=== PATIENT | male | born 2000 | race Caucasian/White ===

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

== ENCOUNTER 2022-04-15 15:00 | Emergency (ER) | payer OTHER, SELFPAY ==
--- NOTE | ~2022-04-15 | CT_ITS ---
EXAMINATION: CT brain wo con DATE: 04/15/2022 18:20 INDICATION: head injury s/p seizure . TECHNIQUE: Computed tomography (CT) of the head was performed without intravenous contrast. The mA wa s adjusted according to patient size. Iterative reconstruction technique was employed. The dose-lengt h product was 605.33 mGy-cm. COMPARISON: None FINDINGS: No acute intracranial hemorrhage or extra-axial fluid collection. No hydrocephalus, mass, or herniation. No acute ischemic infarct. Unremarkable dural venous sinus attenuation. No acute osseous abnormality. Right frontal retention cyst or polyp, otherwise the aerated spaces are clear. Sagittal reformats were not originally provided, low resolution sagittal reformats were created after the fact. IMPRESSION: No acute intracranial process. Reviewed, dictated and finalized at location K.
--- NOTE | ~2022-04-15 | CT_ITS ---
EXAMINATION: CT brain wo con DATE: 04/15/2022 16:04 INDICATION: Seizure TECHNIQUE: Computed tomography (CT) of the head was performed without intravenous contrast. Sagittal and coronal reconstructions were performed. The mA was adjusted according to patient size. Iterative reconstruction technique was employed. The dose-length product was 605.33 mGy-cm. COMPARISON: head CT dated 12/09/21 FINDINGS: No acute intracranial hemorrhage, acute infarction or abnormal extra axial fluid collection. Ventricl es are normal and symmetric. No mass/mass effect. Unchanged likely mucous retention cyst at the right frontoethmoidal recess. The orbits, paranasal sinuses and mastoid air cells are normal. IMPRESSION: 1. Normal brain. Reviewed, dictated and finalized at location A. IMPRESSION: 1. Normal brain.
[2022-04-15 15:03] VITALS: BP 127/96; PULSE 64; RESP 14; TEMP 36.7; O2SAT 100
--- NOTE | 2022-04-15 15:42 | ECG_ITS ---
Measurements Intervals [place] Rate: 59 P: 30 [place]: 127 QRS: 76 QRSD: 91 T: 57 QT: 391 QTc: 387 Interpretive Statements SINUS BRADYCARDIA WITH SINUS ARRHYTHMIA BORDERLINE ECG COMPARED TO ECG 12/09/2021 19:13:56 HEART RATE HAS DECREASED Electronically Signed On 04-16-2022 15:03:52 CDT by Catarino Le M.D.
--- NOTE | 2022-04-15 16:08 | ED.SEIZURE ---
HPI - Seizure General Chief Complaint: Seizure Stated Complaint: requesting CT due to possible SZ Time Seen by Provider: 04/15/22 15:23 History of Present Illness HPI Narrative: 21-year-old male who was admitted history of polysubstance abuse presents to the emergency room for possible seizure. Patient states last night he was told by a friend that he was having a seizure while asleep. Admits to a history of seizures over 1 year ago. Patient states that he believes he was having seizures due to his heavy fentanyl and cocaine years. States has been clean from drug use until just recently where he was doing cocaine. No associated injuries with his seizure. Denies fevers. Denies head injury or trauma. Seizure History: Yes Related Data Home Medications Medication Instructions Recorded Confirmed No Home Medications 12/09/21 12/09/21 Allergies Allergy/AdvReac Type Severity Reaction Status Date / Time bath & body soaps Allergy Severe Other Uncoded 02/08/21 17:23 steroids AdvReac Intermediate Other Uncoded 02/08/21 17:23 Review of Systems Review of Systems: CONSTITUTIONAL: Denies fever, chills, or sweats. EYES: Denies visual changes, redness, or discharge. ENT: Denies rhinorrhea, congestion, sore throat, or otalgia. CARDIOVASCULAR: Denies chest pain, palpitations, or edema. RESPIRATORY: Denies cough or dyspnea. GASTROINTESTINAL: Denies abdominal pain, nausea, vomiting, or diarrhea. GENITOURINARY: Denies dysuria or hematuria. SKIN: Denies rash or itching. MUSCULOSKELETAL: Denies back pain, joint pain, or myalgia. NEUROLOGIC: Denies headache, numbness, dizziness, or weakness. PSYCHIATRIC: Denies anxiety or depression. 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 The patient smokes marijuana. He denies any other illicit drugs. He is a full code. His adoptive parents are the durable power compliance attorney for healthcare. Smoking status: Current every day smoker Tobacco type: cigarettes Alcohol intake: current Drinks per week: 3 Substance use: current Substance use type: marijuana Other substance usage details: daily Gender identity (if verbalized by the patient): Male Sexual Orientation (if Verbalized by the Patient): Straight or Heterosexual Spiritual care concerns: No Exam Narrative: GENERAL: Well-appearing, well-nourished, no physical limitations, and in no acute distress. HEAD: Normocephalic, atraumatic. EYES: Conjunctivae normal, PERRLA and EOMI. ENT: External nose normal, Nares clear, no rhinorrhea or epistaxis. Mucous membranes moist. Oropharynx without tonsillar hypertrophy exudate or other lesions. External ears normal, bilateral TMs normal bilaterally NECK: Supple. No meningeal signs. No adenopathy or masses. No carotid bruits or JVD CHEST: Clear to auscultation. No respiratory distress. No wheezes rales or rhonchi. No tenderness. HEART: Regular rate and rhythm. No murmur heard. Normal peripheral pulses. EXTREMITIES: Normal range of motion. No edema. No clubbing or cyanosis SKIN: Warm, dry, no rash. No noted wounds NEURO: No focal deficits. Alert and oriented x3. MAEW. CN's II-XI intact bilaterally, normal gait PSYCH: Cooperative. Normal mood and affect. Course Vital Signs Vital signs:
[2022-04-15 16:49] LABS: Basophils Absolute Auto 0.1 K/mm3 (0.0-0.1); Basophils Percent Auto 0.6 % (0.2-1.2); Eosinophils Absolute Auto 0.1 K/mm3 (0-0.3); Eosinophils Percent Auto 0.5 % (0-4.4); Hematocrit 45.9 % (42.0-52.0); Hemoglobin 15.6 g/dL (14.0-18.0); Immature Granulocyte Absolute 0.04 K/mm3 (0.00-0.031); Immature Granulocyte Percent A 0.4 % (0-0.5); Lymphocytes Absolute Auto 1.44 K/mm3 (0.9-3.2); Lymphocytes Percent Auto 12.8 % (18.3-44.2); Mean Corpuscular Hemoglobin 30.3 pg (26-34); Mean Corpuscular Volume 89.1 fl (80-100); Mean Platelet Volume 10.3 fl (7.4-10.4); Monocytes Absolute Auto 0.8 K/mm3 (0.1-0.6); Neutrophils Absolute Auto 8.8 K/mm3 (1.3-6.7); Neutrophils Percent Auto 78.7 % (45.5-73.1); Platelet Count Result 250 k/mm3 (150-375); Red Blood Count 5.15 M/mm3 (4.6-6.20); Red Cell Distribution Width 13.4 % (11.5-14.5); White Blood Count 11.2 K/mm3 (4.5-10.0)
[2022-04-15 16:59] LABS: Alanine Aminotransferase 40 U/L (6-50); Alkaline Phosphatase 129 U/L (58-237); Anion Gap 12 mmol/L (8-16); Aspartate Amino Transferase 44 U/L (17-59); Bilirubin,Total 0.4 mg/dL (0.2-1.3); Blood Urea Nitrogen 11 mg/dL (8-21); Calcium 9.4 mg/dL (8.9-10.7); Carbon Dioxide 23 mmol/L (22-30); Chloride 100 mmol/L (98-107); Estimated Glomerular Filt Rate > 60; Glucose 99 mg/dL (65-110); Sodium 135 mmol/L (134-143)
[2022-04-15 17:03] LABS: Appearance Urine Clear (Clear); Bilirubin Urine Negative (Negative); Blood Urine Negative (Negative); Color Urine Yellow (Yellow); Glucose Urine UA Negative (Negative); Ketones Urine Negative (Negative); Leukocyte Esterase Ur Negative LEU/UL (Negative); Nitrate Urine Negative (Negative); Protein Urine Negative (Negative); Specific Grav Ur 1.025 (1.001-1.035); Urobilinogen Urine 0.2 mg/dL (<2.0)
[2022-04-15 17:06] LABS: Mucus Urine Rare /lpf; RBC Urine 0-2 /hpf (0-2); Squamous Epithelial Cell Urine Rare /hpf (Few); WBC Urine 0-3 /hpf
[2022-04-15 17:07] LABS: Add Urine Microscopic? NO
[2022-04-15 17:10] LABS: Troponin I < 0.012 ng/mL (0.000-0.034)
[2022-04-15 17:26] LABS: Amphetamine Screen Urine Negative (Negative); Barbiturate Screen Urine Negative (Negative); Benzodiazepines Screen Urine Negative (Negative); Cannabinoid Screen Urine Positive (Negative); Cocaine Screen Urine Positive (Negative); Methadone Screen Urine Negative (Negative); Opiate Screen Urine Negative (Negative); Phencyclidine Screen Urine Negative (Negative)
--- NOTE | 2022-04-15 18:02 | PC.NURSE ---
This RN went in to the room to get a last set of discharge vitals when I found the pt on the floor. Pt appears to be post ictal. projection engineer and ALL AROUND GEAR MACHINE OPERATOR made aware.
[2022-04-15] MEDS: LORazepam INJ (*CRX) 2 MG/ML VIAL 0.5 MG IV PUSH (18:21)
[2022-04-15] MEDS: levETIRAcetam 1000MG/NACL100ML 1,000 MG/100 ML BAG 400 MG IVPB (18:21)
--- NOTE | 2022-04-15 19:24 | PC.NURSE ---
pt requesting to leave AMA. pt states I'm not fucking staying here, I want to go home EDP Fabrice Tamayo made aware. pt educated on the importance of staying in the hospital and risks of leaving. Pt still wanting to leave AMA. pt alert and oriented x4.
== END 2022-04-15 19:24 | disposition left against medical advice (07) ==
PROVIDERS: Emergency Provider Nurse Practitioner Family
DX: R56.9 Unspecified convulsions (principal); F19.10 Other psychoactive substance abuse, uncomplicated; S00.93XA Contusion of unspecified part of head, initial encounter; R00.1 Bradycardia, unspecified; W06.XXXA Fall from bed, initial encounter
CPT/HCPCS: 36415; 70450; 80053; 80307; 81003; 84484; 85025; 93005; 96365; 96375; 99284; J1953; J2060

== ENCOUNTER 2022-04-18 00:54 | Emergency (ER) | payer OTHER, SELFPAY ==
[2022-04-18 01:09] VITALS: BP 121/77; PULSE 110; RESP 20; TEMP 36.6; O2SAT 99
== END 2022-04-18 04:41 | disposition left against medical advice (07) ==
DX: F14.90 Cocaine use, unspecified, uncomplicated (principal)
CPT/HCPCS: 99199

== ENCOUNTER 2022-04-19 08:31 | Observation (INO) | payer OTHER, SELFPAY ==
[2022-04-19] VITALS (19 sets, daily range): BP systolic 108–148; BP diastolic 56–87; PULSE 62–124; RESP 16–25; TEMP 36.1–36.7; O2SAT 98–100; BMI 17.9
--- NOTE | ~2022-04-19 | XR_ITS ---
EXAMINATION: XR clavicle LT INDICATION: Left clavicle pain TECHNIQUE: Two views of the left clavicle are obtained. COMPARISON: None available FINDINGS: There is no fracture, dislocation, or subluxation. The bones, soft tissues, and joint space s are normal. IMPRESSION: 1. No acute osseous abnormality. Reviewed, dictated and finalized at location A.
[2022-04-19] MEDS: SODIUM CHLORIDE 0.9% IV 1,000 ML 999 ML IV CONT (09:29)
[2022-04-19 09:30] LABS: Basophils Absolute Auto 0.1 K/mm3 (0.0-0.1); Basophils Percent Auto 1.1 % (0.2-1.2); Eosinophils Absolute Auto 0.1 K/mm3 (0-0.3); Hematocrit 46.8 % (42.0-52.0); Immature Granulocyte Absolute 0.03 K/mm3 (0.00-0.031); Immature Granulocyte Percent A 0.4 % (0-0.5); Lymphocytes Absolute Auto 2.48 K/mm3 (0.9-3.2); Lymphocytes Percent Auto 35.6 % (18.3-44.2); Mean Corpuscular HGB Conc 34.2 g/dl (32-36); Mean Corpuscular Hemoglobin 29.9 pg (26-34); Mean Corpuscular Volume 87.3 fl (80-100); Mean Platelet Volume 10.2 fl (7.4-10.4); Monocytes Absolute Auto 0.9 K/mm3 (0.1-0.6); Monocytes Percent Auto 12.2 % (2.6-8.5); Neutrophils Absolute Auto 3.4 K/mm3 (1.3-6.7); Neutrophils Percent Auto 48.7 % (45.5-73.1); Platelet Count Result 296 k/mm3 (150-375); Red Blood Count 5.36 M/mm3 (4.6-6.20); Red Cell Distribution Width 13.7 % (11.5-14.5)
[2022-04-19 09:31] LABS: Appearance Urine Clear (Clear); Bilirubin Urine Negative (Negative); Blood Urine Negative (Negative); Color Urine Yellow (Yellow); Glucose Urine UA Negative (Negative); Ketones Urine Trace mg/dL (Negative); Leukocyte Esterase Ur Negative LEU/UL (Negative); Nitrate Urine Negative (Negative); Protein Urine Trace mg/dL (Negative); Specific Grav Ur >= 1.030 (1.001-1.035); Urobilinogen Urine 0.2 mg/dL (<2.0)
[2022-04-19 09:35] LABS: Mucus Urine Few /lpf; RBC Urine 0-2 /hpf (0-2); WBC Urine 0-3 /hpf
[2022-04-19 09:37] LABS: Add Urine Microscopic? YES
[2022-04-19 09:40] LABS: Alanine Aminotransferase 39 U/L (6-50); Albumin Level 5.2 g/dL (3.7-5.6); Alkaline Phosphatase 123 U/L (58-237); Anion Gap 16 mmol/L (8-16); Aspartate Amino Transferase 52 U/L (17-59); Bilirubin,Total 0.8 mg/dL (0.2-1.3); Blood Urea Nitrogen 11 mg/dL (8-21); Calcium 9.7 mg/dL (8.9-10.7); Carbon Dioxide 22 mmol/L (22-30); Chloride 100 mmol/L (98-107); Estimated CRCL calculation 122 ml/min; Estimated Glomerular Filt Rate > 60; Glucose 89 mg/dL (65-110); Potassium 3.6 mmol/L (3.4-5.0); Sodium 138 mmol/L (134-143)
[2022-04-19 09:41] LABS: Ethanol 47 mg/dL (<10)
[2022-04-19 09:48] LABS: Amphetamine Screen Urine Negative (Negative); Barbiturate Screen Urine Negative (Negative); Benzodiazepines Screen Urine Negative (Negative); Cannabinoid Screen Urine Positive (Negative); Cocaine Screen Urine Positive (Negative); Methadone Screen Urine Negative (Negative); Opiate Screen Urine Negative (Negative); Phencyclidine Screen Urine Negative (Negative)
--- NOTE | 2022-04-19 10:21 | ED.GENADULT ---
HPI - General Adult General Chief complaint: Seizure Stated complaint: seizures Time Seen by Provider: 04/19/22 08:44 History of Present Illness HPI narrative: Patient is a 21 y/o CM who p/w r/o SZ. Seen in ER recently with witnessed seizure. Has past admissions 2/2 seizure. [place] to be related to cocaine abuse. No seizure today. Pt with scattered bruises and abrasions possibly from seizure activity. Pt also reports depression w/o SI/HI. Does not take anti-epileptics. Related Data Home Medications Medication Instructions Recorded Confirmed bupropion HCl 150 mg 24 hr tablet, 150 mg PO QHS 04/19/22 04/19/22 extended release olanzapine 5 mg tablet 5 mg PO QAM 04/19/22 04/19/22 Allergies Allergy/AdvReac Type Severity Reaction Status Date / Time bath & body soaps Allergy Severe Other Uncoded 04/18/22 01:13 steroids AdvReac Intermediate Other Uncoded 04/18/22 01:13 Review of Systems Review of Systems: All systems reviewed & are unremarkable except as noted in HPI and below Constitutional: Constitutional: Denies chills and Denies fever(s) Eyes: Eyes: Denies change in vision and Denies photophobia Cardiovascular: Cardiovascular: Denies chest pain, Denies rapid heart rate and Denies radiating jaw, neck or arm pain Respiratory: Respiratory: Denies chest congestion and Denies cough Gastrointestinal: Gastrointestinal: Denies abdominal pain, Denies nausea and Denies vomiting Genitourinary: Genitourinary: Denies urinary incontinence Integumentary/Breasts: Skin/Breast: Reports erythema and Reports rash Neurologic: Reports syncope (seizure), Denies numbness and Denies weakness PMF Past Medical History Medical History ADHD Decreased thyroid stimulating hormone (TSH) level With normal free T3 and free T4 Depression Generalized seizure Seizure disorder verses substance induced Surgical History Surgical History No pertinent past surgical history Family History Family History Unknown Unknown family medical history Patient is adopted Social History Social History (Updated 04/19/22 @ 14:31 by KHLOE Brock) Social History: He is currently working at [employer]. He wishes for his brother Jae Styles to be his surrogate, however, in the past his adoptive parents has been his durable power of county attorney. He wishes to be a full code at this time. Smoking packs per day: 0.25 Smoking cigarettes per day: 5.0 Years smoked: 3 Smoking pack-years: 0.75 Smoking status: Current every day smoker Tobacco type: cigarettes and e-cigarettes/vaping Alcohol intake: current Alcohol use details: 3 shots per day Substance use: current Substance use type: marijuana and crack/cocaine Other substance usage details: Last use of Fentanyl May 2021, Cocaine once a week Living arrangements: with family Occupation/Education: occupation Additional occupation/education comments: [employer] Gender identity (if verbalized by the patient): Male Sexual Orientation (if Verbalized by the Patient): Straight or Heterosexual Spiritual care concerns: No Agree to blood products: Yes Exam Narrative: GENERAL: Well-appearing, well-nourished, and in no acute distress. HEAD: Normocephalic, atraumatic. EYES: PERRLA and EOMI. ENT: Mucous membranes moist. CHEST: Clear to auscultation. No respiratory distress. Contusion over mid left clavicle. HEART: Regular rate and rhythm. Normal peripheral pulses. ABDOMEN: Soft, nontender, nondistended. EXTREMITIES: Normal range of motion. No edema. SKIN: Warm, dry. Abrasions of right elbow. Red raised rash across the back and upper chest. There are small scabs and areas. Seems consistent with contact dermatitis over cellulitis or folliculitis. NEURO: Alert and oriented x3. PSYCH: Normal mo
--- NOTE | 2022-04-19 10:31 | PM.IMHP ---
H&P: HPI History of Present Illness Date/Time: 04/19/22 10:31 Chief Complaint: Recurrent Seizure activity Narrative: Patient is a 21 year old male with a past medical history of seizures and drug abuse who present to the ED with complaints of seizures. Unfortunately this patient is not a good historian, however, he stated that he was just in the ED and had a seizure here. He stated that he went back to work and they were requiring him to have a note from the MD. He stated that the only way he could get a note was if he got admitted. He denies having any recent seizures, however, he stated that he has not taken any of his medications. He stated he did not even know that he needed to take medications. 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 He denies any chest pain, shortness of breath, nausea, vomiting, constipation, weakness, fatigue, headache, dizziness, syncope, falls. He denies hitting his head, but stated that he had a bump on the back of it. He did state that he had diarrhea. He stated that he smokes about 2g of marijuana a day, and has been doing cocaine about once a week. Currently he appear stable, and is just hungry. He stated that he did get a lunch tray, however, he just picked through it. He is wanting a sandwich. Head ct from 04/15/22 shows normal brain. Labs appear stable. Neurology has been consulted. The patient is being admitted in observation Review of Systems Review of Systems: All systems reviewed & are unremarkable except as noted in HPI and below PMFSH Past Medical History Medical History ADHD Decreased thyroid stimulating hormone (TSH) level With normal free T3 and free T4 Depression Generalized seizure Seizure disorder verses substance induced Surgical History Surgical History No pertinent past surgical history Family History Family History Unknown Unknown family medical history Patient is adopted Social History Social History (Updated 04/19/22 @ 14:31 by KHLOE Brock) Social History: He is currently working at [employer]. He wishes for his brother Jae Styles to be his surrogate, however, in the past his adoptive parents has been his durable power of assistant prosecuting attorney. He wishes to be a full code at this time. Smoking packs per day: 0.25 Smoking cigarettes per day: 5.0 Years smoked: 3 Smoking pack-years: 0.75 Smoking status: Current every day smoker Tobacco type: cigarettes and e-cigarettes/vaping Alcohol intake: current Alcohol use details: 3 shots per day Substance use: current Substance use type: marijuana and crack/cocaine Other substance usage details: Last use of Fentanyl May 2021, Cocaine once a week Living arrangements: with family Occupation/Education: occupation Additional occupation/education comments: [employer] Gender identity (if verbalized by the patient): Male Sexual Orientation (if Verbalized by the Patient): Straight or Heterosexual Spiritual care concerns: No Agree to blood products: Yes Meds Home Medications and Allergies Home Medications Medication Instructions Recorded Confirmed Type levetiracetam 500 mg tablet 500 mg PO BID 30 days #60 tabs 04/15/22 04/19/22 Rx ([facility]) bupropion HCl 150 mg 24 hr tablet, 150 mg PO QHS 04/19/22 04/19/22 History extended release olanzapine 5 mg tablet 5 mg PO QAM 04/19/22 04/19/22 History Allergies Allergy/AdvReac Type Severity Reaction Status Date / Time bath & body soaps Allergy Severe Other Uncoded 04/18/22 01:13 steroids AdvReac Intermediate Other Uncoded 04/18/22 01:13 Vital Signs Vital Signs - 24 hr 04/19/22 08:34 Temperature 98.1 F Pulse Rate 107 H Respiratory Rate 18 Blood Pressure 148/87 H Pulse Oximetry 100 Oxygen Delivery Room Air Exam
--- NOTE | 2022-04-19 10:33 | PC.NURSE ---
Pharmacy contaced for IV Keppra dose
[2022-04-19] MEDS: levETIRAcetam 1000MG/NACL100ML 1,000 MG/100 ML BAG 400 MG IVPB (10:55)
--- NOTE | 2022-04-19 11:26 | ADMGEN ---
This patient, Toni Lilly, was admitted to Medical Room 247-. Patient/family oriented to hospital policies and general routines including ID bracelet, bed and alarms, visiting hours, pain management, procedures, bathroom and other care routines, personal items, smoking policy, room service/diet, and visiting hours. Information on how to activate the Rapid Response Team has been discussed. Patient/Family are encouraged to report perceived risks to care and to ask questions if they do not understand what they are told or what they should do.
[2022-04-19] MEDS: SODIUM CHLORIDE 0.9% IV 1,000 ML 125 ML IV CONT (12:23)
[2022-04-19] MEDS: levETIRAcetam 500 MG TABLET PO (20:07)
[2022-04-19] MEDS: buPROPion HCL XL (24 HR) 150 MG TABCR PO (20:07)
--- NOTE | 2022-04-19 22:08 | PC.NURSE ---
Patient verbally aggressive and using profanity with staff saying he is leaving. AMA forms signed. Provider operations support specialist updated along with greenhouse manager.
--- NOTE | 2022-04-20 07:08 | PM.DS ---
DS: Admitting Diagnosis Discharge Date 04/19/22 Admitting Diagnosis recurrent seizures DS: Discharge Diagnosis Discharge Diagnosis (1) Generalized seizure: Code(s): R56.9 - Unspecified convulsions Status: Acute Assessment and Plan: Noted to have seizures Supposed to be on Keppra 500mg PO BID Neurology consulted Continue home medications Seizure precautions (2) Drug intoxication: Qualifiers: Complication of substance-induced condition: with unspecified complication Qualified Code(s): F19.929 - Other psychoactive substance use, unspecified with intoxication, unspecified Code(s): F19.929 - Other psychoactive substance use, unspecified with intoxication, unspecified Status: Acute Assessment and Plan: Urine drug screen showed cocaine and marijuana Education about cessation given (3) ADHD: Code(s): F90.9 - Attention-deficit hyperactivity disorder, unspecified type Status: Acute Assessment and Plan: Continue Zyprexa Not sure that he is really taking these medications (4) Anxiety: Code(s): F41.9 - Anxiety disorder, unspecified Status: Acute Assessment and Plan: Continue home medications DS: Summary Hospital Course Hospital Course: Patient is a 21 year old male with a past medical history of seizures and drug abuse who present to the ED with complaints of seizures.? Unfortunately this patient is not a good historian, however, he stated that he was just in the ED and had a seizure here.? He stated that he went back to work and they were requiring him to have a note from the MD.? He stated that the only way he could get a note was if he got admitted.? He denies having any recent seizures, however, he stated that he has not taken any of his medications.? He stated he did not even know that he needed to take medications.? 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 He denies any chest pain, shortness of breath, nausea, vomiting, constipation, weakness, fatigue, headache, dizziness, syncope, falls.? He denies hitting his head, but stated that he had a bump on the back of it.? He did state that he had diarrhea.? He stated that he smokes about 2g of marijuana a day, and has been doing cocaine about once a week.? Currently he appear stable, and is just hungry.? He stated that he did get a lunch tray, however, he just picked through it.? He is wanting a sandwich.? Head ct from 04/15/22 shows normal brain.? Labs appear stable.? Neurology has been consulted. Patient apparently left AMA. Was not seen by neurology. Will send ivet into the pharmacy, and have nursing call to tell him that it is available to him Time spent discussing smoking cessation with patient: more than 10 minutes Status at Discharge Functional status at discharge: independent ambulation Overall status at discharge: patient is back to baseline Time Spent with Patient Time attestation: Total time spent providing and/or coordinating discharge services: 18 minutes Time spent: Less than 30 minutes Exam Narrative: Exam from initial interview Const: General: cooperative, healthy appearing, no acute distress, well developed, alert and awake Nutritional Appearance: well nourished Orientation/consciousness: patient oriented x3 Limitations: no limitations HENMT: Head: normal to inspection Ears: hearing grossly normal bilaterally General nose exam: Normal external nose present Mouth: Yes Normal oral and palatal mucosa present, Yes lip normal and Yes tongue normal Teeth and gingiva: abnormal tooth and associated gingiva and poor dentition Eyes: General: appearance normal, both eyes and all related structures Neck: Neck: normal visual inspection, full ROM, trachea midline and supple Chest: Chest palpation & inspection: normal inspection of the chest Resp: Effort & Inspection: normal respiratory effort and able to speak in c
== END 2022-04-19 22:15 | disposition left against medical advice (07) ==
LOC: ANHED 09:14 → ANH2MED 17:07
PROVIDERS: Admitting Provider Family Medicine; Emergency Provider Emergency Medicine; Visit Provider Nurse Practitioner
DX: R56.9 Unspecified convulsions (principal); F19.29 Other psychoactive substance dependence with unspecified psychoactive substance-induced disorder; F90.9 Attention-deficit hyperactivity disorder, unspecified type; F41.9 Anxiety disorder, unspecified; E03.9 Hypothyroidism, unspecified; F32.A Depression, unspecified; L25.9 Unspecified contact dermatitis, unspecified cause; S50.00XA Contusion of unspecified elbow, initial encounter; S40.019A Contusion of unspecified shoulder, initial encounter; F14.10 Cocaine abuse, uncomplicated; F12.10 Cannabis abuse, uncomplicated; F17.210 Nicotine dependence, cigarettes, uncomplicated; Z79.891 Long term (current) use of opiate analgesic; Z79.899 Other long term (current) drug therapy; Z53.29 Procedure and treatment not carried out because of patient's decision for other reasons
CPT/HCPCS: 36415; 73000; 80053; 80307; 81001; 85025; 96361; 96374; 99285; A9270; G0378; G0379; J1953; J7030

== ENCOUNTER 2022-05-09 18:09 | Inpatient (IN) | payer OTHER, SELFPAY ==
[2022-05-09] VITALS (31 sets, daily range): BP systolic 94–127; BP diastolic 37–79; PULSE 78–115; RESP 13–27; TEMP 36.3–36.6; O2SAT 91–100
--- NOTE | ~2022-05-09 | CT_ITS ---
EXAMINATION: CT brain wo con DATE: 05/10/2022 05:30 INDICATION: Confusion. TECHNIQUE: Computed tomography (CT) of the head was performed without intravenous contrast. The mA wa s adjusted according to patient size. Iterative reconstruction technique was employed. The dose-lengt h product was 681.00 mGy-cm. COMPARISON: Head CT 04/15/2022 FINDINGS: There is no intracranial hemorrhage, acute infarction, or abnormal intracranial mass lesion . The ventricles are normal in size. The orbits are normal. There is mild mucosal thickening in the paranasal sinuses. The mastoid air cells are normal. IMPRESSION: 1. Normal brain. Reviewed, dictated and finalized at location A. IMPRESSION: 1. Normal brain.
--- NOTE | ~2022-05-09 | CT_ITS ---
EXAMINATION:CT diagnostic chest wo con DATE: 05/10/2022 05:31 INDICATION: Dyspnea. Overdose. TECHNIQUE: Computed tomography (CT) of the chest was performed without intravenous contrast. Automate d exposure control and iterative reconstruction technique were employed. The dose-length product (DLP ) was 159.40 mGy-cm. COMPARISON: Chest single view 05/09/2022 FINDINGS: The lungs demonstrate mild atelectasis. No pleural effusion. The heart size is normal. No p ericardial effusion. There is thoracic levocurvature. IMPRESSION: 1. No acute cardiopulmonary disease. Reviewed, dictated and finalized at location A.
--- NOTE | ~2022-05-09 | XR_ITS ---
EXAMINATION: XR chest 1V portable DATE: 05/11/2022 05:28 INDICATION: Aspiration pneumonia. TECHNIQUE: A single frontal view of the chest was obtained. COMPARISON: Chest single view 05/09/2022, chest CT 05/10/2022 FINDINGS: The chest demonstrates clear lungs without pneumonia, pleural effusion, or pneumothorax. Th e heart size is normal. IMPRESSION: 1. No acute cardiopulmonary disease. Reviewed, dictated and finalized at location A.
--- NOTE | ~2022-05-09 | XR_ITS ---
EXAMINATION: XR chest 1V portable Exam Date/Time: 05/09/2022 19:00 CDT HISTORY: Overdose; smoker Comparison: 12/09/2021. RESULT: Lines, tubes, and devices: None. Lungs and pleura: Mild diffuse reticulonodular opacities. Cardiomediastinal silhouette: Stable. Other: No acute osseous or upper abdominal finding. IMPRESSION: Pulmonary opacities may represent bronchiolitis, as can be seen with atypical infection, asthma, aspi ration, and small airways disease. Reviewed, dictated and finalized at location K. IMPRESSION: Pulmonary opacities may represent bronchiolitis, as can be seen with atypical i nfection, asthma, aspiration, and small airways disease.
--- NOTE | 2022-05-09 18:14 | ECG_ITS ---
Measurements Intervals [place] Rate: 103 P: 62 NE: 142 QRS: 74 QRSD: 92 T: 41 QT: 332 QTc: 437 Interpretive Statements SINUS TACHYCARDIA BORDERLINE ECG COMPARED TO ECG 04/15/2022 16:49:50 SINUS TACHYCARDIA NOW PRESENT Electronically Signed On 05-10-2022 6:24:47 CDT by Manuel Crespo D.O.
--- NOTE | 2022-05-09 18:18 | ED.GENADULT ---
HPI - General Adult General Chief complaint: Overdose <Robert Kay MD - Last Filed: 05/12/22 06:01> Stated complaint: overdose <Robert Kay MD - Last Filed: 05/12/22 06:01> Time Seen by Provider: 05/09/22 18:11 <Robert Kay MD - Last Filed: 05/12/22 06:01> History of Present Illness HPI narrative: This is a 21-year-old male presenting ED for overdose. Earlier today the patient took multiple pills while recording himself on his snap chat. His friends saw his snap chat and called EMS. When EMS arrived the patient ran from them. Eventually he was detained by police. Once they found out the patient had claimed to take multiple clonidine, Zyprexa, Wellbutrin and Vyvanse he was brought to the hospital for further evaluation. During our interview the patient became disruptive and swearing and was standing on the counter in the room. He was then given 5 mg of Haldol 5 mg of Versed. <Robert Kay MD - Last Filed: 05/12/22 06:01> Related Data Home medications: Home Medications Medication Instructions Recorded Confirmed bupropion HCl 150 mg 24 hr tablet, 150 mg PO QAM 04/19/22 05/10/22 extended release olanzapine 5 mg tablet 5 mg PO QAM 04/19/22 05/10/22 <Robert Kay MD - Last Filed: 05/12/22 06:01> Allergies/adverse reactions: Allergies Allergy/AdvReac Type Severity Reaction Status Date / Time bath & body soaps Allergy Severe Other Uncoded 04/18/22 01:13 steroids AdvReac Intermediate Other Uncoded 04/18/22 01:13 <Robert Kay MD - Last Filed: 05/12/22 06:01> Review of Systems Review of Systems: ROS unobtainable: Yes unobtainable due to medical condition <Robert Kay MD - Last Filed: 05/12/22 06:01> [facility] Past Medical History Medical History: Medical History (Updated 05/10/22 @ 07:30 by Radha Sykes DO) ADHD Bipolar disorder (manic depression) Decreased thyroid stimulating hormone (TSH) level With normal free T3 and free T4 Depression Generalized seizure Seizure disorder verses substance induced <Robert Kay MD - Last Filed: 05/12/22 06:01> Surgical History Surgical History: Surgical History No pertinent past surgical history <Robert Kay MD - Last Filed: 05/12/22 06:01> Family History Family History: Family History Other Adopted Unknown family medical history <Robert Kay MD - Last Filed: 05/12/22 06:01> Social History Social History: Social History Social History: He is currently working at [employer]. He wishes for his brother Jae Styles to be his surrogate, however, in the past his adoptive parents has been his durable power of corporate aircraft mechanic. He wishes to be a full code at this time. Smoking packs per day: 0.25 Smoking cigarettes per day: 5.0 Years smoked: 3 Smoking pack-years: 0.75 Smoking status: Current every day smoker Tobacco type: cigarettes and e-cigarettes/vaping Alcohol intake: current Drinks per week: 21 Alcohol use details: 3 shots per day Substance use: current Substance use type: marijuana Other substance usage details: Cocaine and fentanyl Additional occupation/education comments: [employer] Gender identity (if verbalized by the patient): Male Sexual Orientation (if Verbalized by the Patient): Straight or Heterosexual Spiritual care concerns: No Agree to blood products: Yes <Robert Kay MD - Last Filed: 05/12/22 06:01> Exam Narrative: APPEARANCE: Patient is fidgeting in the bed. He is yelling aloud voice. Head atraumatic. EYES: PERRLA/EOMI, NOSE: Normal no drainage NECK: Supple, Trachea midline RESPIRATORY: CTAB, No increased work of breathing. CARDIOVASCULAR: S1S2 appreciated ABDOMINAL: Soft, nontender, nondistended, MUSCULOSKELETAl: No obviou
[2022-05-09] MEDS: MIDAZOLAM HCL (*CRX) 2 MG/2 ML VIAL 5 MG IM (18:31)
[2022-05-09] MEDS: HALOPERIDOL LACTATE 5 MG/ML VIAL IM (18:31)
--- NOTE | 2022-05-09 18:39 | PC.NURSE ---
Patient arrived to ED room with EMS and PD. Patient calm and cooperative with RN and EMS staff. Dr. Kay arrived into room, pulled up a chair to talk to patient, patient then became verbally upset, yelling, and cursing. Dr. Kay removed himself and ordered medications to help patient calm down. Automatic Pilot Mechanic tried to verbally de-escalate patient, as well as PD. Patient continued to yell and started ripping off his monitoring equipment. Patient stood up off stretcher, started pacing back and forth and yelling. Patient stating, I can fucking yell if I want to yell. I don't have to listen to you people, I don't have to be nice. I don't have to be quiet. Stop telling me to stop fucking yelling. Patient then climbed up on chair and sat on counter with legs on counter. Patient continued to yell and be verbally aggressive. Security at bedside and patient continues to yell. Automatic Pilot Mechanic asked patient if he wanted medications to help him calm down and patient response was yes. 1830: Patient climbed onto the bed. Automatic Pilot Mechanic gave the patient option of place for IM injections. Patient chose buttocks. Patient then kneeled on the stretcher, pulled his pants down, and laid down. Patient was calm and cooperative for injections. Patient then agreed to having monitors placed back on. Patient was calm and cooperative with monitor application. 184: Patient given a cup of water and has been more calm and cooperative.
--- NOTE | 2022-05-09 19:07 | PC.NURSE ---
Patient care report given to SELENA Rdz. All questions answered at this time.
[2022-05-09 19:11] LABS: Glucose Point of Care 78 mg/dl (65-105)
[2022-05-09 19:31] LABS: Basophils Absolute Auto 0.1 K/mm3 (0.0-0.1); Basophils Percent Auto 1.5 % (0.2-1.2); Eosinophils Absolute Auto 0.1 K/mm3 (0-0.3); Eosinophils Percent Auto 2.4 % (0-4.4); Hematocrit 44.2 % (42.0-52.0); Immature Granulocyte Absolute 0.02 K/mm3 (0.00-0.031); Immature Granulocyte Percent A 0.4 % (0-0.5); Lymphocytes Absolute Auto 1.75 K/mm3 (0.9-3.2); Lymphocytes Percent Auto 37.6 % (18.3-44.2); Mean Corpuscular HGB Conc 33.9 g/dl (32-36); Mean Corpuscular Hemoglobin 30.1 pg (26-34); Mean Corpuscular Volume 88.6 fl (80-100); Mean Platelet Volume 10.1 fl (7.4-10.4); Monocytes Absolute Auto 0.5 K/mm3 (0.1-0.6); Monocytes Percent Auto 10.1 % (2.6-8.5); Neutrophils Absolute Auto 2.2 K/mm3 (1.3-6.7); Platelet Count Result 282 k/mm3 (150-375); Red Blood Count 4.99 M/mm3 (4.6-6.20); Red Cell Distribution Width 13.8 % (11.5-14.5); White Blood Count 4.7 K/mm3 (4.5-10.0)
[2022-05-09 19:39] LABS: Ammonia < 9 umol/L (9-30)
[2022-05-09 19:42] LABS: Lactic Acid Reflex 3.3 mmol/L (0.7-2.0)
[2022-05-09 19:45] LABS: Acetaminophen < 10 ug/mL (10-30); Ethanol 42 mg/dL (<10); Prothrombin Time 12.9 Seconds (11.1-14.7); Salicylate < 1.0 mg/dL (2-20)
[2022-05-09 19:46] LABS: Alanine Aminotransferase 34 U/L (6-50); Albumin Level 4.9 g/dL (3.7-5.6); Alkaline Phosphatase 111 U/L (58-237); Anion Gap 16 mmol/L (8-16); Aspartate Amino Transferase 44 U/L (17-59); Bilirubin,Total 0.4 mg/dL (0.2-1.3); Blood Urea Nitrogen 11 mg/dL (8-21); Calcium 9.7 mg/dL (8.9-10.7); Carbon Dioxide 19 mmol/L (22-30); Chloride 106 mmol/L (98-107); Creatine Kinase 546 U/L (55-170); Estimated Glomerular Filt Rate > 60; Glucose 83 mg/dL (65-110); Magnesium 2.2 mg/dL (1.6-2.3); Partial Thromboplastin Time 30.2 SECONDS (22.3-36.8); Phosphorus 2.2 mg/dL (2.5-4.5); Potassium 3.8 mmol/L (3.4-5.0); Sodium 141 mmol/L (134-143)
[2022-05-09 19:57] LABS: SARS-CoV-2 RNA PCR Negative
[2022-05-09] MEDS: SODIUM CHLORIDE 0.9% IV 2,000 ML 999 ML IV CONT (20:05)
--- NOTE | 2022-05-09 20:41 | PC.NURSE ---
Pts friend, Yuriy Gyatan PH#
--- NOTE | 2022-05-09 20:59 | PC.NURSE ---
Per Dr. Kay, no need to call poison control as pt is not consistent with what he took. He has told multiple different variations of events that ensued today. Sitter remains at bedside.
[2022-05-09 21:09] LABS: Appearance Urine Clear (Clear); Bilirubin Urine Negative (Negative); Blood Urine Negative (Negative); Color Urine Yellow (Yellow); Glucose Urine UA Negative (Negative); Ketones Urine Negative (Negative); Leukocyte Esterase Ur Negative LEU/UL (Negative); Nitrate Urine Negative (Negative); Protein Urine Negative (Negative); Specific Grav Ur 1.015 (1.001-1.035); Urobilinogen Urine 0.2 mg/dL (<2.0); pH Urine 5.5 (5.0-9.0)
[2022-05-09] MEDS: FAMOTIDINE 20 MG/2 ML VIAL IV PUSH (21:10)
[2022-05-09] MEDS: SODIUM CHLORIDE 0.9% IV 1,000 ML 999 ML IV CONT (21:10)
[2022-05-09 21:14] LABS: Add Urine Microscopic? NO
[2022-05-09 22:13] LABS: Amphetamine Screen Urine Negative (Negative); Barbiturate Screen Urine Negative (Negative); Benzodiazepines Screen Urine Positive (Negative); Cannabinoid Screen Urine Positive (Negative); Cocaine Screen Urine Positive (Negative); Methadone Screen Urine Negative (Negative); Opiate Screen Urine Negative (Negative); Phencyclidine Screen Urine Negative (Negative)
--- NOTE | 2022-05-09 22:23 | PC.NURSE ---
crisis here and pt refuses to talk with her.
[2022-05-09 22:29] LABS: Reflex Lactic Acid Yes or No Add Lactic
--- NOTE | 2022-05-09 22:49 | PC.NURSE ---
This RN called [place] [facility] which was requested by SABINA. Per Poison Control, supportive care provided. Possible ingestion of clonidine and vyvanse have already peaked. However, if pt took Wellbutrin, it's possible that active metabolites could affect pt 3-[address] Mosley informed of this, and plan is to have pt sleep in ED until am, then call POISON CONTROL back to get medical clearance. After that, can call SABINA back to provide this medical clearance for referral already done.
[2022-05-09 23:08] LABS: Lactic Acid 0.8 mmol/L (0.7-2.0)
[2022-05-10] VITALS (93 sets, daily range): BP systolic 96–137; BP diastolic 70–95; PULSE 57–101; RESP 14–32; TEMP 35.7–36.9; O2SAT 86–100; BMI 24.0
[2022-05-10] MEDS: ONDANSETRON INJ 4 MG/2 ML VIAL IV PUSH (01:39)
--- NOTE | 2022-05-10 01:41 | PC.NURSE ---
sitting up in bed vomiting on floor
--- NOTE | 2022-05-10 02:21 | PC.NURSE ---
Pt has become very restless and attempted to stand up on bed and was a fall risk. Not following commands. Will not st
--- NOTE | 2022-05-10 02:23 | PC.NURSE ---
Pt became increasingly agitated and would not follow commands, unable to redirect. Stood on bed and currently moaning and grunting with slurred speech. EDP Melany in room with pt. Medication given as ordered by SELENA Rdz.
[2022-05-10 02:25] LABS: Glucose Point of Care 92 mg/dl (65-105)
--- NOTE | 2022-05-10 02:27 | ECG_ITS ---
Measurements Intervals [place] Rate: 89 P: 68 TX: 156 QRS: 82 QRSD: 105 T: 61 QT: 391 QTc: 478 Interpretive Statements SINUS RHYTHM NORMAL ECG COMPARED TO ECG 05/09/2022 19:02:27 SINUS RHYTHM NOW PRESENT Electronically Signed On 05-10-2022 6:29:46 CDT by Manuel Crespo D.O.
[2022-05-10 02:35] LABS: Basophils Absolute Auto 0.1 K/mm3 (0.0-0.1); Basophils Percent Auto 0.5 % (0.2-1.2); Eosinophils Percent Auto 0.4 % (0-4.4); Hematocrit 38.9 % (42.0-52.0); Hemoglobin 13.1 g/dL (14.0-18.0); Immature Granulocyte Absolute 0.03 K/mm3 (0.00-0.031); Immature Granulocyte Percent A 0.3 % (0-0.5); Lymphocytes Absolute Auto 1.85 K/mm3 (0.9-3.2); Lymphocytes Percent Auto 16.9 % (18.3-44.2); Mean Corpuscular HGB Conc 33.7 g/dl (32-36); Mean Corpuscular Hemoglobin 30.3 pg (26-34); Mean Corpuscular Volume 89.8 fl (80-100); Mean Platelet Volume 10.1 fl (7.4-10.4); Monocytes Absolute Auto 0.8 K/mm3 (0.1-0.6); Monocytes Percent Auto 7.1 % (2.6-8.5); Neutrophils Absolute Auto 8.2 K/mm3 (1.3-6.7); Neutrophils Percent Auto 74.8 % (45.5-73.1); Platelet Count Result 233 k/mm3 (150-375); Red Blood Count 4.33 M/mm3 (4.6-6.20); Red Cell Distribution Width 13.9 % (11.5-14.5); White Blood Count 10.9 K/mm3 (4.5-10.0)
[2022-05-10] MEDS: LORazepam INJ (*CRX) 2 MG/ML VIAL 1 MG IV PUSH (02:35)
--- NOTE | 2022-05-10 02:36 | PC.NURSE ---
AT 0210 pt became uncooperative and would not redirect. Pt standing on bed jumping from bed to floor and left room. Pt not following redirections, speech nonsensical. Pt required restraints for aggression and not making safe decisions. restraints applied at 0220 ERP at bedside.
[2022-05-10] MEDS: SODIUM CHLORIDE 0.9% IV 1,000 ML 999 ML IV CONT (02:43)
[2022-05-10 02:45] LABS: Alanine Aminotransferase 28 U/L (6-50); Albumin Level 4.1 g/dL (3.7-5.6); Alkaline Phosphatase 97 U/L (58-237); Anion Gap 14 mmol/L (8-16); Aspartate Amino Transferase 53 U/L (17-59); Bilirubin,Total 0.5 mg/dL (0.2-1.3); Blood Urea Nitrogen 8 mg/dL (8-21); Calcium 7.7 mg/dL (8.9-10.7); Carbon Dioxide 18 mmol/L (22-30); Chloride 110 mmol/L (98-107); Creatine Kinase 1401 U/L (55-170); Estimated Glomerular Filt Rate > 60; Glucose 95 mg/dL (65-110); Potassium 3.2 mmol/L (3.4-5.0); Sodium 142 mmol/L (134-143)
[2022-05-10 02:46] LABS: Acetaminophen < 10 ug/mL (10-30); Salicylate < 1.0 mg/dL (2-20)
--- NOTE | 2022-05-10 02:55 | PC.NURSE ---
Per [place] [facility], Wellbutrin has a delayed risk of seizures, up to 24 hours s/p ingestion. Vomiting can precede seizures, specifically with Wellbutrin ingestion. Care is supportive: Give benzos generously; monitor for good urine output.
--- NOTE | 2022-05-10 03:16 | PM.IMHP ---
H&P: HPI History of Present Illness Date/Time: 05/10/22 03:16 Chief Complaint: Overdose Narrative: 21-year-old with past medical history of drug abuse, bipolar disorder with depression and seizure disorder who presented to the ER with intentional overdose. The patient evidently posted a picture of him taking a handful of an unknown amount of pills around 16:30. His friends called 911 when EMS arrived to the patient's ran. It took approximately 45 minute for EMS to restrain the patient. The patient reportedly took clonidine, Zyprexa Wellbutrin and Vyvanse. He stated to staff that his intent was to kill himself and never wake up. The patient did not verbalize this to me but was uncooperative with history taking process. Evidently the patient was intermittently standing up on the bed and being uncooperative in the ER. At 1 time he actually stood up on the counter in the patient room. He also stood up on the bed and then proceeded to vomit a large amount of water that he had just drank on the floor of the ER. He received a dose of Haldol, Versed and multiple doses of Ativan in the ER. He had been disruptive enough that he was placed in restraints. After being in the ER for several hours nursing staff went to repeat the patient's vitals and was unable to measure a temperature. Subsequently a rectal temperature was temperature of 96.4?. A temperature probe Danielle catheter was placed and it confirmed the patient was hypothermic. Despite being hypothermic the patient was profusely diaphoretic at the time of my evaluation. He was commenced to that he had urinated in the bed since he was sweating so much. He was not witnessed to be coughing in his COVID PCR was negative. Chest x-ray did suggest possible aspiration versus bronchiolitis versus small airway disease. The patient's initial white count on presentation was 4.7 but repeat evaluation was 10.9. His UA was not suggestive of a UTI. At the time my evaluation the patient was alert oriented to person place and year. He seemed to be alert to situation. He was confused as to the month. The patient was having episodes of waxing and waning mentation in the ER. At the time of my evaluation in the ER the patient had [address] Due to the patient's altered mental status CT of the head was performed which was negative for acute process. In given the abnormal chest x-ray with patient's rising white count and hypothermia CT of the chest was performed C we could verify infectious process or not. CT of the chest did not demonstrate any infiltrate. Patient did receive empiric antibiotic therapy with Unasyn. Patient was under a Branden Hugger at the time my evaluation. The patient did admit to taking fentanyl and cocaine 2 days prior to coming to the ER. Repeat labs in the ER also demonstrated developing rhabdomyolysis, mild hypokalemia Of note the patient left the hospital AMA during his last hospitalization for breakthrough seizure. The patient cannot tell me if he actually took his Keppra. Review of Systems Review of Systems: The patient was uncooperative with review of systems due to his psychiatric illness and drug abuse. PMFSH Past Medical History Medical History (Updated 05/10/22 @ 07:30 by Radha Sykes DO) ADHD Bipolar disorder (manic depression) Decreased thyroid stimulating hormone (TSH) level With normal free T3 and free T4 Depression Generalized seizure Seizure disorder verses substance induced Surgical History Surgical History No pertinent past surgical history Family History Family History (Updated 05/10/22 @ 03:20 by Radha Sykes DO) Other Adopted Unknown family medical history Social History Social History Social History: He is currently working at [employer]. He wishes for his brother Jae Styles to be his surrogate, however,
--- NOTE | 2022-05-10 03:39 | PC.NURSE ---
Dr. Sykes in room c pt.
[2022-05-10] MEDS: dexmedeTOMIDine 400 MCG/100 ML 400 MCG/100 ML BAG IV CONT (03:58)
[2022-05-10] MEDS: SODIUM CHLORIDE 0.9% IV 1,000 ML 200 ML IV CONT ×4 (04:52→20:36)
[2022-05-10] MEDS: AMPICILLIN SULB 3 GM/NS 100 ML 3 GM/100 ML VIAL IVPB ×4 (05:38→23:39)
[2022-05-10] MEDS: POTASSIUM CHLORIDE INJ 40 MEQ in SODIUM CHLORIDE 0.9% IV 500 ML 130 MEQ IVPB (05:39)
--- NOTE | 2022-05-10 06:41 | ADMGEN ---
This patient, Toni Lilly, was admitted to Intensive Care Unit-4. Patient/family oriented to hospital policies and general routines including ID bracelet, bed and alarms, visiting hours, pain management, procedures, bathroom and other care routines, personal items, smoking policy, room service/diet, and visiting hours. Information on how to activate the Rapid Response Team has been discussed. Patient/Family are encouraged to report perceived risks to care and to ask questions if they do not understand what they are told or what they should do.
--- NOTE | 2022-05-10 07:24 | PC.NURSE ---
Talked to pt's lifelong friend Jae Gabriel, , about admission information. Jae stated he does not know pt's aunt, November's phone number. The pt gave [phone] as November's number, but Jae thinks this number is actually the pt's number. Jae is not sure if November is a POA for the pt, but he knows she has helped him with other hospital admissions.
--- NOTE | 2022-05-10 08:36 | WPDCNINT ---
Assessment and Plan Assessment and plan (1) Polysubstance overdose: Qualifiers: Encounter type: initial encounter Injury intent: intentional self-harm Qualified Code(s): T50.902A - Poisoning by unspecified drugs, medicaments and biological substances, intentional self-harm, initial encounter Code(s): T50.901A - Poisoning by unspecified drugs, medicaments and biological substances, accidental (unintentional), initial encounter Status: Acute Assessment and Plan: Patient was felt being himself on snap chat with a handful of medications that he took, his friends called 911. When EMS arrived he ran from the EMS and later had to be intercepted by police. He was brought to the ER on 05/09/2022 -patient stated that he took clonidine, Vyvanse, Wellbutrin and Zyprexa -EKG showed normal QT -patient given 3 L of IV fluids bolus -continue maintenance IV fluids -patient was agitated and uncooperative in the ER, he was placed in 4 point restraint -I recommended ER starting Precedex infusion -continue to monitor on Precedex infusion -watch for serotonin syndrome -urine tox screen was positive cocaine, benzodiazepine and cannabinoids, watch for withdrawal (2) Rhabdomyolysis: Qualifiers: Rhabdomyolysis type: non-traumatic Qualified Code(s): M62.82 - Rhabdomyolysis Code(s): M62.82 - Rhabdomyolysis Status: Acute Assessment and Plan: Elevated CK levels likely related to rhabdomyolysis, She received adequate IV fluids, continue maintenance IV fluids Monitoring CK levels (3) Toxic encephalopathy: Code(s): G92.9 - Unspecified toxic encephalopathy Status: Acute Assessment and Plan: Could be related to medication overdose, bipolar disorder, psychosis. -continue Precedex for now -continue maintenance IV fluids (4) Hypothermia: Code(s): T68.XXXA - Hypothermia, initial encounter Status: Acute Assessment and Plan: Resolved related to excessive diaphoresis and effect of secondary cooling, infectious related, possible thyroid problems -patient was placed on a Branden Hugger with improvement in his body temperature, currently off Branden Hugger -TSH has been normal -patient was started on some empiric Unasyn for possible aspiration pneumonitis/pneumonia -will continue to monitor body temperature (5) Hypokalemia: Code(s): E87.6 - Hypokalemia Status: Acute Assessment and Plan: Potassium was replaced (6) Pneumonia: Code(s): J18.9 - Pneumonia, unspecified organism Status: Acute Assessment and Plan: Questionable aspiration pneumonia -patient started on Unasyn Plan DVT prophylaxis: Lovenox Stress ulcer prophylaxis: Not applicable Nutrition: NPO for now Code Status: Full code Critical Care Time Spent: 43 minutes Due to a high probability of clinically significant, life threatening deterioration, the patient required my highest level of preparedness to intervene emergently and I personally spent this critical care time directly and personally managing the patient. This critical care time included obtaining a history; examining the patient; pulse oximetry; ordering and review of studies; arranging urgent treatment with development of a management plan; evaluation of patient's response to treatment; frequent reassessment; and discussions with other providers. It was exclusive of separately billable procedures and treating other patients and teaching time. Please see Assessment and Plan section and the rest of the note for further information on patient assessment and treatment Field Service Tech Consult Note Consult date: 05/10/22 Reason for consult: Intentional overdose HPI: Tonirojelio Lilly is a 21 year old male with significant past medical history of illicit drug abuse, bipolar disorder with depression seizure disorder presented the ER on 05/09/2022 with complains of intentional overdose. Patient of apparently posted pictures on
[2022-05-10] MEDS: levETIRAcetam 500 MG TABLET PO ×2 (09:49→21:30)
[2022-05-10 14:25] LABS: Creatine Kinase 968 U/L (55-170)
[2022-05-10] MEDS: dexmedeTOMIDine 400 MCG/100 ML 400 MCG/100 ML BAG 7.81 MCG IV CONT (18:03)
[2022-05-11] VITALS (11 sets, daily range): BP systolic 114–148; BP diastolic 76–98; PULSE 50–84; RESP 16–22; TEMP 36.3–36.8; O2SAT 98–100
[2022-05-11] MEDS: SODIUM CHLORIDE 0.9% IV 1,000 ML 200 ML IV CONT ×2 (01:24→06:08)
[2022-05-11] MEDS: dexmedeTOMIDine 400 MCG/100 ML 400 MCG/100 ML BAG 10.94 MCG IV CONT (02:22)
[2022-05-11 04:31] LABS: Basophils Absolute Auto 0.1 K/mm3 (0.0-0.1); Basophils Percent Auto 0.8 % (0.2-1.2); Eosinophils Absolute Auto 0.1 K/mm3 (0-0.3); Eosinophils Percent Auto 1.1 % (0-4.4); Hemoglobin 13.4 g/dL (14.0-18.0); Immature Granulocyte Absolute 0.03 K/mm3 (0.00-0.031); Immature Granulocyte Percent A 0.4 % (0-0.5); Lymphocytes Absolute Auto 2.16 K/mm3 (0.9-3.2); Lymphocytes Percent Auto 25.4 % (18.3-44.2); Mean Corpuscular HGB Conc 33.5 g/dl (32-36); Mean Corpuscular Hemoglobin 29.8 pg (26-34); Mean Corpuscular Volume 89.1 fl (80-100); Mean Platelet Volume 10.5 fl (7.4-10.4); Monocytes Absolute Auto 0.8 K/mm3 (0.1-0.6); Neutrophils Absolute Auto 5.4 K/mm3 (1.3-6.7); Neutrophils Percent Auto 63.3 % (45.5-73.1); Platelet Count Result 228 k/mm3 (150-375); Red Blood Count 4.49 M/mm3 (4.6-6.20); Red Cell Distribution Width 13.2 % (11.5-14.5); White Blood Count 8.5 K/mm3 (4.5-10.0)
[2022-05-11 04:42] LABS: Alanine Aminotransferase 28 U/L (6-50); Albumin Level 3.7 g/dL (3.7-5.6); Alkaline Phosphatase 94 U/L (58-237); Anion Gap 10 mmol/L (8-16); Aspartate Amino Transferase 40 U/L (17-59); Bilirubin,Total 0.8 mg/dL (0.2-1.3); Blood Urea Nitrogen 4 mg/dL (8-21); Calcium 8.4 mg/dL (8.9-10.7); Carbon Dioxide 19 mmol/L (22-30); Chloride 107 mmol/L (98-107); Creatine Kinase 810 U/L (55-170); Estimated CRCL calculation 127 ml/min; Estimated Glomerular Filt Rate > 60; Glucose 100 mg/dL (65-110); Magnesium 1.9 mg/dL (1.6-2.3); Phosphorus 2.7 mg/dL (2.5-4.5); Potassium 3.4 mmol/L (3.4-5.0); Sodium 136 mmol/L (134-143)
[2022-05-11 04:43] LABS: Lactic Acid Reflex 0.7 mmol/L (0.7-2.0)
[2022-05-11 05:07] LABS: INR 1.1; Prothrombin Time 13.4 Seconds (11.1-14.7)
[2022-05-11 05:08] LABS: Partial Thromboplastin Time 31.3 SECONDS (22.3-36.8)
[2022-05-11] MEDS: AMPICILLIN SULB 3 GM/NS 100 ML 3 GM/100 ML VIAL IVPB (06:08)
[2022-05-11] MEDS: ENOXAPARIN 40 MG/0.4 ML SYRINGE SUB-Q (08:04)
[2022-05-11] MEDS: levETIRAcetam 500 MG TABLET PO ×2 (08:04→21:53)
--- NOTE | 2022-05-11 08:09 | WPDINTPN ---
Progress Note: A&P Assessment and Plan (1) Polysubstance overdose: Qualifiers: Encounter type: initial encounter Injury intent: intentional self-harm Qualified Code(s): T50.902A - Poisoning by unspecified drugs, medicaments and biological substances, intentional self-harm, initial encounter Code(s): T50.901A - Poisoning by unspecified drugs, medicaments and biological substances, accidental (unintentional), initial encounter Status: Acute Assessment and Plan: Patient was felt being himself on snap chat with a handful of medications that he took, his friends called 911. When EMS arrived he ran from the EMS and later had to be intercepted by police. He was brought to the ER on 05/09/2022. patient was agitated and uncooperative in the ER, he was placed in 4 point restraint -patient stated that he took clonidine, Vyvanse, Wellbutrin and Zyprexa -EKG showed normal QT -patient given 3 L of IV fluids bolus -decreased maintenance IV fluids and will turn it off if patient continues take adequate p.o. intake -Precedex infusion is being weaned to off -urine tox screen was positive cocaine, benzodiazepine and cannabinoids, watch for withdrawal -patient is medically stable, will have crisis management and urgent care technician evaluated the patient, will require psych facility (2) Rhabdomyolysis: Qualifiers: Rhabdomyolysis type: non-traumatic Qualified Code(s): M62.82 - Rhabdomyolysis Code(s): M62.82 - Rhabdomyolysis Status: Acute Assessment and Plan: Elevated CK levels likely related to rhabdomyolysis, Patient received adequate IV fluids, decrease maintenance IV fluids CK levels trending down (3) Toxic encephalopathy: Code(s): G92.9 - Unspecified toxic encephalopathy Status: Acute Assessment and Plan: IMPROVED Could be related to medication overdose, bipolar disorder, psychosis. -continue Precedex for now -continue maintenance IV fluids (4) Hypothermia: Code(s): T68.XXXA - Hypothermia, initial encounter Status: Acute Assessment and Plan: RESOLVED Likely related to excessive diaphoresis and effect of secondary cooling, infectious related, possible thyroid problems -patient was placed on a Branden Hugger with improvement in his body temperature, currently off Branden Hugger -TSH has been normal -patient was started on some empiric Unasyn for possible aspiration pneumonitis/pneumonia -body temperatures have been normal (5) Hypokalemia: Code(s): E87.6 - Hypokalemia Status: Acute Assessment and Plan: Potassium was replaced (6) Pneumonia: Code(s): J18.9 - Pneumonia, unspecified organism Status: Acute Assessment and Plan: Questionable aspiration pneumonia -patient started on Unasyn Plan DVT prophylaxis: Lovenox Stress ulcer prophylaxis: Not applicable Nutrition: Patient on regular diet 05/10/2022: Discussed with patient's aunt and cousin along with bedside RN Ruthie Collazo, charge nurse Edward and myself in the conference room. Patient's aunt said that he is adopted and his mom 2 years ago, he has been living in his mom's house since, mostly all by himself. He uses cocaine and marijuana, also drinks alcohol. He does not believe in counselors. He has been to psych facilities before and knows the correct words to get out of those facilities. Patient's aunt and cousin feels that he really needs some help from a psychiatrist. I did tell them that once a crisis management team follows him there might be placing him in a psych facility where the family can go and discuss with the physicians and the team taking care of him. Code Status: Full code Critical Care Time Spent: 32 minutes Due to a high probability of clinically significant, life threatening deterioration, the patient required my highest level of preparedness to intervene emergently and I personally spent this critical care time directly and ron
--- NOTE | 2022-05-11 11:17 | PC.NURSE ---
This RN spoke with Juvencio at [place] [facility] at 11:15 this morning and provided an update. Per Juvencio, [place] [facility] is officially closing this case.
[2022-05-12 08:00] VITALS: BP 118/75; PULSE 62; RESP 20; TEMP 36.6; O2SAT 100
[2022-05-12 08:33] VITALS: O2SAT 99
[2022-05-12] MEDS: ENOXAPARIN 40 MG/0.4 ML SYRINGE SUB-Q (08:38)
[2022-05-12] MEDS: levETIRAcetam 500 MG TABLET PO ×2 (08:39→20:06)
--- NOTE | 2022-05-12 08:48 | PM.IMPN ---
Progress Note: A&P Assessment and Plan (1) Polysubstance overdose: Qualifiers: Encounter type: initial encounter Injury intent: intentional self-harm Qualified Code(s): T50.902A - Poisoning by unspecified drugs, medicaments and biological substances, intentional self-harm, initial encounter Code(s): T50.901A - Poisoning by unspecified drugs, medicaments and biological substances, accidental (unintentional), initial encounter Status: Acute Assessment and Plan: Patient was felt being himself on snap chat with a handful of medications that he took, his friends called 911. When EMS arrived he ran from the EMS and later had to be intercepted by police. He was brought to the ER on 05/09/2022. patient was agitated and uncooperative in the ER, he was placed in 4 point restraint -patient stated that he took clonidine, Vyvanse, Wellbutrin and Zyprexa -EKG showed normal QT -patient received adequate amount of IV fluids -patient with adequate p.o. intake, IV fluids have been discontinued -OFF Precedex infusion since 05/11/2022 -urine tox screen was positive cocaine, benzodiazepine and cannabinoids, watch for withdrawal -care coordination and crisis management of evaluated the patient, patient has agreed to be placed more anteriorly in a psych facility (2) Rhabdomyolysis: Qualifiers: Rhabdomyolysis type: non-traumatic Qualified Code(s): M62.82 - Rhabdomyolysis Code(s): M62.82 - Rhabdomyolysis Status: Acute Assessment and Plan: Elevated CK levels likely related to rhabdomyolysis, Patient received adequate IV fluids, decrease maintenance IV fluids CK levels trending down (3) Toxic encephalopathy: Code(s): G92.9 - Unspecified toxic encephalopathy Status: Acute Assessment and Plan: IMPROVED Could be related to medication overdose, bipolar disorder, psychosis. -of Precedex (4) Hypothermia: Code(s): T68.XXXA - Hypothermia, initial encounter Status: Acute Assessment and Plan: RESOLVED Likely related to excessive diaphoresis and effect of secondary cooling, infectious related, possible thyroid problems -patient was placed on a Branden Hugger with improvement in his body temperature, currently off Branden Hugger -TSH has been normal -patient was started on some empiric Unasyn for possible aspiration pneumonitis/pneumonia -body temperatures have been normal (5) Hypokalemia: Code(s): E87.6 - Hypokalemia Status: Acute Assessment and Plan: Potassium was replaced (6) Pneumonia: Code(s): J18.9 - Pneumonia, unspecified organism Status: Acute Assessment and Plan: Questionable aspiration pneumonia -chest x-ray was clear on 05/11/2022: Unasyn was discontinued -patient is asymptomatic Plan DVT prophylaxis: Lovenox Stress ulcer prophylaxis: Not applicable Nutrition: Patient on regular diet 05/10/2022: Discussed with patient's aunt and cousin along with bedside RN Ruthie Collazo, charge nurse Edward and myself in the conference room. Patient's aunt said that he is adopted and his mom 2 years ago, he has been living in his mom's house since, mostly all by himself. He uses cocaine and marijuana, also drinks alcohol. He does not believe in counselors. He has been to psych facilities before and knows the correct words to get out of those facilities. Patient's aunt and cousin feels that he really needs some help from a psychiatrist. I did tell them that once a crisis management team follows him there might be placing him in a psych facility where the family can go and discuss with the physicians and the team taking care of him. Code Status: Full code Due to a high probability of clinically significant, life threatening deterioration, the patient required my highest level of preparedness to intervene emergently and I personally spent this critical care time directly and personally managing the patient. This critical ca
[2022-05-12 12:35] LABS: Hematocrit 47.5 % (42.0-52.0); Hemoglobin 16.5 g/dL (14.0-18.0); Mean Corpuscular HGB Conc 34.7 g/dl (32-36); Mean Corpuscular Hemoglobin 30.4 pg (26-34); Mean Corpuscular Volume 87.5 fl (80-100); Mean Platelet Volume 10.6 fl (7.4-10.4); Platelet Count Result 326 k/mm3 (150-375); Red Blood Count 5.43 M/mm3 (4.6-6.20); Red Cell Distribution Width 13.2 % (11.5-14.5); White Blood Count 7.4 K/mm3 (4.5-10.0)
[2022-05-12 12:46] LABS: Alanine Aminotransferase 37 U/L (6-50); Albumin Level 5.1 g/dL (3.7-5.6); Alkaline Phosphatase 119 U/L (58-237); Anion Gap 15 mmol/L (8-16); Aspartate Amino Transferase 46 U/L (17-59); Bilirubin,Total 0.7 mg/dL (0.2-1.3); Blood Urea Nitrogen 7 mg/dL (8-21); Calcium 10.1 mg/dL (8.9-10.7); Carbon Dioxide 24 mmol/L (22-30); Chloride 99 mmol/L (98-107); Estimated CRCL calculation 91 ml/min; Estimated Glomerular Filt Rate > 60; Glucose 91 mg/dL (65-110); Potassium 3.8 mmol/L (3.4-5.0); Sodium 138 mmol/L (134-143)
[2022-05-12 13:25] LABS: Creatine Kinase 466 U/L (55-170)
[2022-05-12 20:00] VITALS: BP 140/87; PULSE 72; RESP 18; TEMP 37.1; O2SAT 98
--- NOTE | 2022-05-12 20:18 | PC.NURSE ---
Pt irritable, wants to sleep and wants minimal interaction. Suicide screening not performed. He is being voluntarily admitted to [facility] and ambulance is on its way.
--- NOTE | 2022-05-12 21:38 | PC.NURSE ---
2109 patient yelling in room, claims he is frustrated that he has been waiting for ambulance and has not been able to get any sleep, despite sleeping last hour. Compassionate listening provided and pt calmed.
--- NOTE | 2022-05-12 21:40 | PC.NURSE ---
[facility] called and left message that patient has left and it on [facility] way to [facility], as well as [facility] made aware in transport.
--- NOTE | 2022-05-23 17:44 | PM.TDS ---
Transfer Discharge Sum: Prov Provider Date of admission: 05/10/22 03:29 Primary care physician: [facility] PHYSICIAN Admitting clinician: Radha Sykes DO Consults: 05/10/22 Consult to Physician Routine Comment: Consulting Provider: Consuelo Schilling Reason for consultation: ICU Has provider been notified: Yes DS: Admitting Diagnosis Discharge Date 05/12/22 Admitting Diagnosis Intentional overdose DS: Discharge Diagnosis Discharge Diagnosis (1) Generalized seizure: Code(s): R56.9 - Unspecified convulsions Status: Acute Assessment and Plan: Noted to have seizures Supposed to be on Keppra 500mg PO BID Neurology consulted Continue home medications Seizure precautions (2) Drug intoxication: Qualifiers: Complication of substance-induced condition: with unspecified complication Qualified Code(s): F19.929 - Other psychoactive substance use, unspecified with intoxication, unspecified Code(s): F19.929 - Other psychoactive substance use, unspecified with intoxication, unspecified Status: Acute Assessment and Plan: Urine drug screen showed cocaine and marijuana Education about cessation given (3) ADHD: Code(s): F90.9 - Attention-deficit hyperactivity disorder, unspecified type Status: Acute Assessment and Plan: Continue Zyprexa Not sure that he is really taking these medications (4) Anxiety: Code(s): F41.9 - Anxiety disorder, unspecified Status: Acute Assessment and Plan: Continue home medications Transfer Discharge Sum: Med Medications Active and Home Medications: Home Medications bupropion HCl 150 mg 24 hr tablet, extended release 150 mg PO QAM 04/19/22 [History Confirmed 05/10/22] olanzapine 5 mg tablet 5 mg PO QAM 04/19/22 [History Confirmed 05/10/22] levetiracetam 500 mg tablet (Keppra) 500 mg PO BID 30 days #60 tabs 04/20/22 [Rx Confirmed 05/10/22] Transfer Discharge Sum: Hosp Hospital Course Hospital course: 21-year-old with past medical history of drug abuse, bipolar disorder with depression and seizure disorder who presented to the ER with intentional overdose.? The patient evidently posted a picture of him taking a handful of an unknown amount of pills around 16:30.? His friends called 911 when EMS arrived to the patient's ran.? It took approximately 45 minute for EMS to restrain the patient.? The patient reportedly took clonidine, Zyprexa Wellbutrin and Vyvanse.? He stated to staff that his intent was to kill himself and never wake up.? The patient did not verbalize this to me but was uncooperative with history taking process.? Evidently the patient was intermittently standing up on the bed and being uncooperative in the ER.? At 1 time he actually stood up on the counter in the patient room.? He also stood up on the bed and then proceeded to vomit a large amount of water that he had just drank on the floor of the ER.? He received a dose of Haldol, Versed and multiple doses of Ativan in the ER.? He had been disruptive enough that he was placed in restraints.? After being in the ER for several hours nursing staff went to repeat the patient's vitals and was unable to measure a temperature.? Subsequently a rectal temperature was temperature of 96.4?.? A temperature probe Danielle catheter was placed and it confirmed the patient was hypothermic.? Despite being hypothermic the patient was profusely diaphoretic at the time of my evaluation.? He was commenced to that he had urinated in the bed since he was sweating so much.? He was not witnessed to be coughing in his COVID PCR was negative.? Chest x-ray did suggest possible aspiration versus bronchiolitis versus small airway disease.? The patient's initial white count on presentation was 4.7 but repeat evaluation was 10.9.? His UA was not suggestive of a UTI.? At the time my evaluation the patient was alert oriented to p
== END 2022-05-12 21:32 | DRG 817 ==
LOC: ANHED 05-10 03:31 → ANHICU 05-10 03:45
PROVIDERS: Emergency Medicine; Internal Medicine; Student in an Organized Health Care Education/Training Program; Admitting Provider Internal Medicine; Emergency Provider Emergency Medicine; Visit Provider Internal Medicine
DX: T43.592A Poisoning by other antipsychotics and neuroleptics, intentional self-harm, initial encounter (principal); G92.8 Other toxic encephalopathy; M62.82 Rhabdomyolysis; T43.622A Poisoning by amphetamines, intentional self-harm, initial encounter; T43.292A Poisoning by other antidepressants, intentional self-harm, initial encounter; R68.0 Hypothermia, not associated with low environmental temperature; F31.9 Bipolar disorder, unspecified; E87.6 Hypokalemia; F90.9 Attention-deficit hyperactivity disorder, unspecified type; F17.290 Nicotine dependence, other tobacco product, uncomplicated; G40.909 Epilepsy, unspecified, not intractable, without status epilepticus; R79.89 Other specified abnormal findings of blood chemistry; R19.7 Diarrhea, unspecified; Z20.822 Contact with and (suspected) exposure to COVID-19; F41.9 Anxiety disorder, unspecified
CPT/HCPCS: 36415; 70450; 71045; 71250; 80053; 80307; 81003; 82140; 82550; 82948; 83605; 83735; 84100; 84443; 85025; 85027; 85610; 85730; 87040; 93005; 96361; 96372; 96374; 99285; A9270; C9803; J0295; J1630; J1650; J2060; J2250; J2405; J3480; J7030; J7040; U0003; U0005

== ENCOUNTER 2023-04-20 15:34 | Emergency (ER) | payer OTHER, SELFPAY ==
[2023-04-20 15:35] VITALS: BP 102/42; PULSE 113; RESP 30; TEMP 37.9; O2SAT 95
--- NOTE | 2023-04-20 15:47 | ED.SEIZURE ---
HPI - Seizure General Chief Complaint: Seizure Stated Complaint: Seizure Time Seen by Provider: 04/20/23 15:47 Source: patient Mode of arrival: ambulatory Limitations: no limitations History of Present Illness HPI Narrative: Dennys is a 22 year old male patient presenting to the clinic today with complaints of seizure. Patient was brought in by EMS for seizure that occurred at a local urgent care center. Patient went to the local urgent care center for URI symptoms and tested positive for COVID at the center and then he had a seizure that lasted approximately 15 seconds and was postictal so EMS was called. Patient does have history of seizures and takes Keppra daily. He has seen Dr. Fowler-neurologist in the past for the seizures. Also has a history of overdose/drug abuse. Patient is febrile in the ER today. Patient denies any pain, headache, visual changes, dizziness, shortness of breath, or chest pain. Seizure History: Yes Related Data Home Medications Medication Instructions Recorded Confirmed bupropion HCl 150 mg 24 hr tablet, 150 mg PO QAM 04/19/22 05/10/22 extended release olanzapine 5 mg tablet 5 mg PO QAM 04/19/22 05/10/22 Allergies Allergy/AdvReac Type Severity Reaction Status Date / Time bath & body soaps Allergy Severe Other Uncoded 04/18/22 01:13 steroids AdvReac Intermediate Other Uncoded 04/18/22 01:13 Review of Systems Review of Systems: Pertinent positives per HPI. Patient denies any rash, headache, visual changes, dizziness, shortness of breath, chest pain, palpitations, nausea, vomiting, diarrhea, constipation, abdominal pain, or any urinary issues. [facility] Past Medical History Medical History (Updated 04/20/23 @ 16:39 by Frank Doll APRN) ADHD Bipolar disorder (manic depression) Decreased thyroid stimulating hormone (TSH) level With normal free T3 and free T4 Depression Generalized seizure Seizure disorder verses substance induced Surgical History Surgical History No pertinent past surgical history Family History Family History Other Adopted Unknown family medical history Social History Social History Social History: He is currently working at [employer]. He wishes for his brother Jae Styles to be his surrogate, however, in the past his adoptive parents has been his durable power of securities attorney. He wishes to be a full code at this time. Smoking packs per day: 0.25 Smoking cigarettes per day: 5.0 Years smoked: 3 Smoking pack-years: 0.75 Smoking status: Current every day smoker Tobacco type: cigarettes and e-cigarettes/vaping Alcohol intake: current Drinks per week: 21 Alcohol use details: 3 shots per day Substance use: current Substance use type: marijuana Other substance usage details: Cocaine and fentanyl Living arrangements: with family Occupation/Education: occupation Additional occupation/education comments: [employer] Gender identity (if verbalized by the patient): Male Sexual Orientation (if Verbalized by the Patient): Straight or Heterosexual Spiritual care concerns: No Agree to blood products: Yes Comments At the time of my signature, I reviewed and agree with the nursing past medical, surgical, social, and family history. There is no relevant family history pertinent to the patient complaint. Exam Narrative: General: Well-developed, well nourished, in no apparent distress Head: Normocephalic, atraumatic Eyes: Pupils equally round and reactive to light bilaterally- sluggish, EOM intact, sclera and conjunctive clear, no discharge, lids normal Ears: TMs intact and clear, ear canals clear, no drainage, grossly hearing normal. Nose: Nares patent, no discharge, no inflammation, no sinus tenderness. Mouth: Oropharynx without lesions or
[2023-04-20 16:08] LABS: Hematocrit 46.2 % (42.0-52.0); Hemoglobin 15.5 g/dL (14.0-18.0); Mean Corpuscular HGB Conc 33.5 g/dl (32-36); Mean Corpuscular Hemoglobin 29.6 pg (26-34); Mean Corpuscular Volume 88.2 fl (80-100); Mean Platelet Volume 10.4 fl (7.4-10.4); Platelet Count Result 205 k/mm3 (150-375); Red Blood Count 5.24 M/mm3 (4.6-6.20); Red Cell Distribution Width 13.2 % (11.5-14.5); White Blood Count 6.3 K/mm3 (4.5-10.0)
[2023-04-20] MEDS: ACETAMINOPHEN 500 MG TABLET 1000 MG PO (16:09)
[2023-04-20] MEDS: levETIRAcetam 1000MG/NACL100ML 1,000 MG/100 ML BAG 400 MG IVPB (16:09)
[2023-04-20] MEDS: SODIUM CHLORIDE 0.9% IV 1,000 ML 999 ML IV CONT (16:12)
[2023-04-20 16:18] LABS: Band Neutrophils Percent 12 % (0-6); Eosinophils Absolute Manual 0.06 K/mm3 (0.02-0.5); Eosinophils Percent Manual 1 % (0-4); Lymphocytes Absolute Manual 0.25 K/mm3 (1.1-4.5); Monocytes Percent Manual 8 % (3-9); Neutrophils Absolute Manual 5.48 K/mm3 (1.3-6.7); Neutrophils Percent Manual 75 % (46-73); Platelet Estimate Adequate (Adequate); Schistocytes None Seen (NORMAL); Total Cells Counted 100
[2023-04-20 16:27] LABS: Albumin Level 4.8 g/dL (3.5-5.1); Alkaline Phosphatase 94 U/L (38-126); Anion Gap 19 mmol/L (8-16); Aspartate Amino Transferase 33 U/L (17-59); Bilirubin,Total 0.7 mg/dL (0.2-1.3); Blood Urea Nitrogen 17 mg/dL (9-20); Calcium 9.5 mg/dL (8.4-10.2); Carbon Dioxide 13 mmol/L (22-30); Chloride 101 mmol/L (98-107); Estimated CRCL calculation 100 ml/min; Estimated Glomerular Filt Rate > 60; Glucose 118 mg/dL (65-110); Potassium 4.7 mmol/L (3.4-5.0); Sodium 133 mmol/L (137-145)
[2023-04-20 16:43] LABS: Alanine Aminotransferase 35 U/L (6-50)
[2023-04-20 16:59] LABS: Amphetamine Screen Urine Negative (Negative); Barbiturate Screen Urine Negative (Negative); Benzodiazepines Screen Urine Negative (Negative); Cannabinoid Screen Urine Positive (Negative); Cocaine Screen Urine Negative (Negative); Methadone Screen Urine Negative (Negative); Opiate Screen Urine Negative (Negative); Phencyclidine Screen Urine Negative (Negative)
== END 2023-04-20 16:55 | disposition left against medical advice (07) ==
PROVIDERS: Emergency Provider Nurse Practitioner Family
DX: R56.9 Unspecified convulsions (principal); U07.1 COVID-19; F90.9 Attention-deficit hyperactivity disorder, unspecified type; F31.9 Bipolar disorder, unspecified; F17.210 Nicotine dependence, cigarettes, uncomplicated; F17.290 Nicotine dependence, other tobacco product, uncomplicated
CPT/HCPCS: 36415; 80053; 80307; 85025; 96365; 99284; A9270; J1953; J7030

== ENCOUNTER 2024-02-17 09:45 | Emergency (ER) | payer OTHER, SELFPAY ==
[2024-02-17 09:49] VITALS: BP 112/68; PULSE 59; RESP 16; TEMP 36.7; O2SAT 99
== END 2024-02-17 12:26 | disposition left against medical advice (07) ==
DX: M79.672 Pain in left foot (principal)
CPT/HCPCS: 99199

== ENCOUNTER 2024-02-17 18:27 | Emergency (ER) | payer OTHER, SELFPAY ==
--- NOTE | ~2024-02-17 | XR_ITS ---
EXAM: XR foot LT min 3V DATE: 02/17/2024 19:06 HISTORY: injury last night foot pain,bruising around distal 5th metat . COMPARISON: None available. FINDINGS: Normal mineralization. Oblique, nondisplaced, extra-articular fracture of the fifth metata rsal head. No lytic or blastic lesion. Joint spaces are maintained. No erosion or periosteal change. Soft tissues within normal limits. IMPRESSION: Oblique nondisplaced extra-articular left fifth metatarsal head fracture. Reviewed, dictated and finalized at location K. IMPRESSION: Oblique nondisplaced extra-articular left fifth metatarsal head fra cture.
--- NOTE | ~2024-02-17 | XR_ITS ---
EXAM: XR wrist RT min 3V DATE: 02/17/2024 19:06 HISTORY: injury last night, wrist pain . COMPARISON: 08/18/2017. FINDINGS: Radiographic detail obscured by overlying bandage/cast material. Normal mineralization. No fracture or dislocation. No lytic or blastic lesion. Joint spaces are maintained. No erosion or luis carlos osteal change. Somewhat triangular density overlying the palmar soft tissues in the lateral view, pos sibly the thenar or hypothenar soft tissues. IMPRESSION: No acute osseous finding in the right wrist. Possible radiopaque foreign body in the then ar or hypothenar soft tissues, versus artifact. Reviewed, dictated and finalized at location K. IMPRESSION: No acute osseous finding in the right wrist. Possible radiopaque fo reign body in the thenar or hypothenar soft tissues, versus artifact.
[2024-02-17 18:43] VITALS: BP 131/84; PULSE 108; RESP 16; TEMP 37.3; O2SAT 99
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
--- NOTE | 2024-02-17 19:04 | PC.NURSE ---
1850 Patient has open wound with skin denuded right palm 3cm x 2.5cm; Patient also has 3 abrasions with skin denuded on the medial aspect right hand-x1 on 5th digit, x1 medial right hand, and x1 on the right medial wrist area. Superficial left knee abrasion 1.5cm x 1cm; right hip abrasion 3cm x 1.5cm. All areas cleansed with skintegrity wound cleanser.
[2024-02-17] MEDS: TETANUS,DIPHTHERIA,AC PERTUSSIS ADULT (0.5 ML) BOOSTRIX IM (19:14)
--- NOTE | 2024-02-17 19:34 | PC.NURSE ---
1930 small bandaid applied left thumb, large bandaid to left palm, left knee, and right hip area; triple antibiotic applied before bandaids. right hand dressed triple antibiotic ointment, teresita, justin and andi.
== END 2024-02-17 19:50 | disposition home or self-care (01) ==
PROVIDERS: Emergency Provider Registered Nurse
DX: S92.355A Nondisplaced fracture of fifth metatarsal bone, left foot, initial encounter for closed fracture (principal); V27.41XA Electric (assisted) bicycle driver injured in collision with fixed or stationary object in traffic accident, initial encounter; S20.311A Abrasion of right front wall of thorax, initial encounter; S60.512A Abrasion of left hand, initial encounter; S80.211A Abrasion, right knee, initial encounter; S70.211A Abrasion, right hip, initial encounter; M25.531 Pain in right wrist; Z23 Encounter for immunization; F90.9 Attention-deficit hyperactivity disorder, unspecified type; F17.210 Nicotine dependence, cigarettes, uncomplicated; F17.290 Nicotine dependence, other tobacco product, uncomplicated
CPT/HCPCS: 73110; 73630; 90471; 90715; 99214; G0463

== ENCOUNTER 2024-03-23 21:20 | Emergency (ER) | payer OTHER, SELFPAY ==
[2024-03-23 22:29] VITALS: BP 112/68; PULSE 84; RESP 16; TEMP 37; O2SAT 99
[2024-03-24 02:27] VITALS: BP 120/72; PULSE 72; RESP 18; O2SAT 98
--- NOTE | 2024-03-24 03:11 | ED.GENADULT ---
HPI - General Adult General Chief complaint: Skin/Abscess/Foreign Body Stated complaint: rash Time Seen by Provider: 03/24/24 03:03 History of Present Illness HPI narrative: Patient 23-year-old gentleman who presents emergency department with chief complaint of poison tanisha. The patient reports he was pulling some weeds with a family member reports that he handled some poison tanisha patient reports he has had itchy rash in his upper extremities and also on his genitalia the patient reports that it has continued itch even though he has been on oral steroids. Patient reports that he has not used anything like zanfel Related Data Home Medications Medication Instructions Recorded Confirmed lisdexamfetamine 30 mg capsule 30 mg PO QAM 02/17/24 02/17/24 (Vyvanse) mirtazapine 15 mg tablet 15 mg PO HS 02/17/24 02/17/24 Allergies Allergy/AdvReac Type Severity Reaction Status Date / Time bath & body soaps Allergy Severe Other Uncoded 02/17/24 20:03 Review of Systems Review of Systems: A 10 system review of systems was completed on the patient and is negative except for what is stated in the HPI. Nursing and ancillary documentation was reviewed. [facility] Past Medical History Medical History ADHD Bipolar disorder (manic depression) Decreased thyroid stimulating hormone (TSH) level With normal free T3 and free T4 Depression Generalized seizure Seizure disorder verses substance induced Surgical History Surgical History No pertinent past surgical history Family History Family History Other Adopted Unknown family medical history Social History Social History Social History: He is currently working at [employer]. He wishes for his brother Jae Styles to be his surrogate, however, in the past his adoptive parents has been his durable power of workers compensation defense attorney. He wishes to be a full code at this time. 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 HEAD: Normocephalic, atraumatic. EYES: PERRLA and EOMI. ENT: Nares clear, no rhinorrhea or epistaxis. Mucous membranes moist. NECK: Supple. CHEST: Clear to auscultation. No respiratory distress. HEART: Regular rate and rhythm. No murmur heard. Normal peripheral pulses. ABDOMEN: Soft, nontender, nondistended, normal active bowel sounds. EXTREMITIES: Normal range of motion. No edema. SKIN: Warm, dry, there is a with an IV type rash present on the upper extremities and on the genitalia. NEURO: No focal deficits. Alert and oriented x3. PSYCH: Normal mood and affect. Course Vital Signs Vital signs: Vital Signs Temperature 37.0 C 03/23/24 22:29 Pulse Rate 84 03/23/24 22:29 Respiratory Rate 16 03/23/24 22:29 Blood Pressure 112/68 03/23/24 22:29 Pulse Oximetry 99 03/23/24 22:29 Oxygen Delivery Room Air 03/23/24 22:29 Temperature 37.0 C 03/23/24 22:29 Pulse Rate 72 03/24/24 02:27 Resp
[2024-03-24] MEDS: dexAMETHasone SOD PHOS INJ 10 MG/ML 1 ML VIAL IM (03:21)
[2024-03-24] MEDS: hydrOXYzine HCL 25 MG TABLET PO (03:21)
== END 2024-03-24 04:00 | disposition home or self-care (01) ==
PROVIDERS: Emergency Provider Emergency Medicine
DX: L23.7 Allergic contact dermatitis due to plants, except food (principal); F17.210 Nicotine dependence, cigarettes, uncomplicated
CPT/HCPCS: 96372; 99283; A9270; J1100